=== PATIENT | male | born 1945 | race Caucasian/White ===

== ENCOUNTER 2017-08-11 17:53 | Day surgery (SDC) | payer MEDICARE, OTHER ==
--- NOTE | 2017-08-11 18:12 | ERNOTE ---
Medical Problem HPI - General Chief Complaint: Foreign Body Time Seen by Provider: 08/11/17 17:56 Source: patient, family Exam Limitations: no limitations - Immun/Allergies/Home Medications Immunizations: IMMUNIZATION HX History of Influenza Vaccine No Hx Pneumococcal Vaccination No Allergies/Adverse Reactions: Allergies No Known Allergies Allergy (Verified 08/11/17 18:00) Home Medications: HOME MEDICATIONS Cetirizine HCl [Zyrtec] 10 mg PO DAILY 12/31/12 [Last Taken Unknown] Aspirin [Aspirin Enteric Coated] 81 mg PO DAILY 02/16/16 [Last Taken Unknown] Tamsulosin HCl [Flomax] 0.4 mg PO DAILY 08/11/17 [Last Taken Unknown] - History of Present History Narrative: Patient was eating cat fish when he felt a fish bone get stuck in his throat. He is able to swallow fluids, no vomiting, no respiratory distress, never had this happen to him. Date (Duration): 08/11/17 Time (Timing): 15:00 Timing: constant Review of Systems - Review of Systems Constitutional: Absent: recent illness, fever ENT: Present: See HPI, sore throat. Absent: nose congestion Respiratory: Absent: shortness of breath, cough Cardiology: Absent: chest pain Gastrointestinal/Abdominal: Absent: nausea, vomiting, abdominal pain Genitourinary: Present: no symptoms reported Musculoskeletal: Present: no symptoms reported Skin: Present: no symptoms reported Neurological: Absent: headache - Patient's Past Medical History Patient History - Medical: Other Patient History - Cardiac/Respiratory: No pertinent hx Patient History - Cancer: No Hx of Cancer Patient History - Surgical Procedures: Appendectomy, Cholecystectomy, Other, Hernia Repair Patient History - Other: None - Family History Mother Family History - Medical: Father Family History - Medical: - Social History Abuse History: No History of abuse Psych History: No pertinent hx Smoking Status: Never smoker Have you smoked in the past 12 months: No - Immunizations Hx Pneumococcal Vaccination: No History of Influenza Vaccine: No Physical Exam - Physical Exam General Appearance: Present: wd/wn, alert, no apparent distress Head Exam: Present: normal inspection Ears, Nose, Throat: Present: normal pharynx - no foreign body visable Neck: Present: normal inspection, nontender Respiratory: Present: no respiratory distress, normal breath sounds, no accessory muscle use, lungs clear Cardiovascular/Chest: Present: regular rate, rhythm, no murmur Neurological Exam: Present: alert, oriented, normal mood/affect Skin Exam: Present: normal color, warm/dry ED Progress - Vital Signs Patient's Vital Signs:: I have reviewed the patient's vital signs. Vital Signs: Vital Signs 08/11/17 17:57 Temperature 36.7 C Pulse Rate 66 Respiratory 14 Rate Blood Pressure 146/84 O2 Sat by Pulse 98 Oximetry - X-Ray X-Ray #1 X-Ray: soft tissue neck FB (fish bone) at C6,C7 Interpretation: Discd w/ radiologist - Progress/Reassessment Chief Complaint: Foreign Body Progress Note-Subjective: 08/11/17 18:[address] Weinstein, will come in and see patient, call in crew for EGD 08/11/17 18:41 discussed xray and plan with patient and 08/11/17 18:54 Dr Weinstein here to see patient Departure Clinical Impression: Esophageal foreign body Qualifiers: Encounter type: initial encounter Qualified Code(s): T18.108A - Unspecified foreign body in esophagus causing other injury, initial encounter - Departure Disposition: [facility] Condition: Good
--- NOTE | 2017-08-11 19:22 | HP ---
Chief Complaint - Chief Complaint Date of Service: 08/11/17 Time of Service: 19:14 Chief Complaint: fish bone stuck History of Present Illness: First bite of catfish around 3PM and a bone got stuck mid neck. Has odynophagia. Drank a little water since. Lateral soft tissue xray show a bone at the C6-C7 level. No soft tissue gas. - Patient's Past Medical History Patient History - Medical: Other Patient History - Cardiac/Respiratory: No pertinent hx Patient History - Cancer: No Hx of Cancer Patient History - Surgical Procedures: Appendectomy, Cholecystectomy, Other, Hernia Repair Patient History - Other: None - Family History Mother Family History - Medical: Father Family History - Medical: - Social History Abuse History: No History of abuse Psych History: No pertinent hx Smoking Status: Never smoker Have you smoked in the past 12 months: No - Immunizations Hx Pneumococcal Vaccination: No History of Influenza Vaccine: No Review Of Systems (GEN) - Review of Systems Generalized/Overall Review: Absent: Chills, Fever EENTM: Present: Throat Pain Respiratory: Present: No Symptoms Reported Cardiac: Present: No Symptoms Reported Abdominal: Present: No Symptoms Reported Genitourinary: Present: Nocturia Musculoskeletal: Present: No Symptoms Reported Neurological: Present: No Symptoms Reported Skin: Present: No Symptoms Reported Immunizations: IMMUNIZATION HX History of Influenza Vaccine No Hx Pneumococcal Vaccination No Allergies/Adverse Reactions: Allergies Allergy/AdvReac Type Severity Reaction Status Date / Time No Known Allergies Allergy Verified 08/11/17 18:00 Home Medications: HOME MEDICATIONS Cetirizine HCl [Zyrtec] 10 mg PO DAILY 12/31/12 [Last Taken Unknown] Aspirin [Aspirin Enteric Coated] 81 mg PO DAILY 02/16/16 [Last Taken Unknown] Tamsulosin HCl [Flomax] 0.4 mg PO DAILY 08/11/17 [Last Taken Unknown] Exam - Exam Vital Signs: Vital Signs - Last Taken Temp 36.4 C L 08/11/17 19:09 Pulse 56 L 08/11/17 19:09 Resp 16 08/11/17 19:09 BP 113/69 08/11/17 19:09 Pulse Ox 97 08/11/17 19:09 Constitutional: Present: Alert, Oriented x3, Cooperative, Well developed, Well nourished, No distress ENT Exam: Present: normal ENT inspection Eye Exam: bilateral eye: normal inspection Neck: Present: full range of motion, normal inspection Back Exam: Present: normal inspection Respiratory: Present: lungs clear, normal breath sounds Cardiovascular/Chest: Present: normal peripheral pulses, regular rate, rhythm, no murmur Peripheral Pulses: dorsalis-pedis (R): 4+, dorsalis-pedis (L): 4+, radial (R): 4 +, radial (L): 4+ Abdomen: Present: Normal bowel sounds, nontender /Rectal: Present: Exam deferred Extremity: Present: normal range of motion, normal inspection, no pedal edema, no calf tenderness Skin Exam: Present: normal color, warm/dry 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 Risks of perforation discussed. After an interactive discussion, his questions were answered to his apparent satisfaction and informed consent obtained. SCD's and IV Ancef. Problem: Acute Qualifiers: Encounter type: initial encounter Qualified Code(s): T18.108A - Unspecified foreign body in esophagus causing other injury, initial encounter
[2017-08-11] MEDS ORDERED: RINGER'S SOLUTION,LACTATED 1,000 ML IV ONE ×2 (19:50→23:04)
[2017-08-11] MEDS ORDERED: ceFAZolin SODIUM 1 GM VIAL IM/IV ONE (20:16)
[2017-08-11] MEDS ORDERED: RINGER'S SOLUTION,LACTATED 1,000 ML IV PRN (20:51)
[2017-08-11] MEDS ORDERED: PIPERACILLIN SODIUM/TAZOBACTAM 3.375 GM in DEXTROSE 5 % IN WATER 100 ML IV SCH ×2 (21:00)
--- NOTE | 2017-08-11 22:05 | OR ---
Operative Report - Dictated Report Narrative: OPERATIVE REPORT DATE OF OPERATION: 08/11/2017 PREOPERATIVE DIAGNOSIS: Foreign body of the esophagus POSTOPERATIVE DIAGNOSIS: Foreign body of the esophagus (fish bone) with possible esophageal perforation OPERATION: Esophagoscopy with removal of impaled fish bone SURGEON: Geri Weinstein MD ANESTHESIA: GenChoco Alva CRNA INDICATIONS FOR PROCEDURE: The patient is a 72-year-old male who was eating catfish and about 3 PM. He felt a bone get stuck at the level of the lower neck. He has continued to have odynophagia. Lateral soft tissue x-ray reveals a radiopaque fish bone at the level of C6-C7. There is no apparent free air. FINDINGS: Fish bone impaled in the cervical esophagus, successfully removed NARRATIVE OF PROCEDURE: The patient was identified preoperatively and prior to the administration of anesthetic a multidisciplinary timeout was observed. SCDs were applied and 1 g of intravenous Ancef administered. Rapid sequence endotracheal intubation was performed followed by general endotracheal anesthetic. The flexible fiberoptic gastroscope was advanced alongside the endotracheal tube into the posterior pharynx which appeared normal. The tube was seen to be in good position, and those portions of the supraglottic larynx visualized appeared normal. The scope was then passed slowly under direct vision through the cricopharyngeus into the most proximal esophagus. Scope was advanced distally until fragments of meat were encountered. These were withdrawn proximally exposing a long fish bone, distal portion of which was lodged in the esophageal mucosa. The proximal end of the bone was grasped with biopsy forceps, snugged against the endoscope and withdrawn from the patient in conjunction with the scope. The scope was then readvanced slowly through the cricopharyngeus and then distally to the site where there was a small amount of submucosal edema and a few drops of blood at the site of injury. The scope was advanced through the distal esophagus which appeared normal into the stomach which was empty. The stomach was empty of insufflated air and the scope was slowly withdrawn up the esophagus with confirmation that no additional injury was present. The esophagus was suction flat behind the treating scope. The injury site was again inspected and found to be hemostatic. The scope was withdrawn from the patient and the procedure terminated. The patient tolerated the anesthetic and procedure well. He was transferred to the recovery room awake extubated and in stable condition. The patient remained stable throughout a period of postoperative observation during which he was given 3.375 g of Zosyn IV. He denied chest or neck pain and his vital signs remained normal. I shared the findings with him and his and explained that because of the possibility of esophageal perforation he should be transferred to the [facility] for further management. I discussed the case with Dr Garcia who agreed to accept the patient in transfer , and then also gave report to Dr. New in the ER. The patient will be transferred by ground ambulance.
[2017-08-11 23:17] VITALS: BP 138/72
== END 2017-08-11 19:07 | disposition home or self-care (01) ==
LOC: ER 17:53 → AMB 19:06
PROVIDERS: ATTEND Surgery
PROC: 0DC58ZZ Extirpation of Matter from Esophagus, Via Natural or Artificial Opening Endoscopic (ICD-10-PCS; principal; 2017-08-11 19:34)
DX: T18.128A Food in esophagus causing other injury, initial encounter (principal); Z68.22 Body mass index [BMI] 22.0-22.9, adult